=== PATIENT | female | born 1945 | race Caucasian/White ===

== ENCOUNTER → 2019-04-30 | Outpatient (CLI) | payer MEDICARE ==
--- NOTE | 2019-04-30 15:14 | PCVCIMAG ---
APPROVED REPORT Study performed: 04/30/2019 12:30:33 EXAM: Comprehensive 2D, Doppler, and color-flow Echocardiogram Patient Location: Echo lab Status: routine BSA: 2.21 HR: 67 bpmBP: 134/70 mmHg Rhythm: NSR Other Information Study Quality: Adequate Risk Factors: Cardiac Risk Factors: HTN, DM Indications CAD 2D Dimensions IVSd: 13.00 (7-11mm) PWd: 12.00 (7-11mm) Left Atrium: 42.84 (27-40mm) Aortic Root: 30.66 mm LV Single Plane 4CH: 48.12 % LV Single Plane 2CH: 43.97 % M-Mode Dimensions LVDd: 40.00 (40-56mm) LVDs: 30.00 (20-38mm) Volumes Left Atrial Volume (Systole) Single Plane 4CH: 59.36 mLSingle Plane 2CH: 55.95 mL LA ESV Index: 29.00 mL/m2 Aortic Valve AoV Peak Orestes.: 1.50 m/s AO Peak Gr.: 8.95 mmHg Mitral Valve E/A Ratio: 0.6 MV Decel. Time: 342.08 ms MV E Max Orestes.: 0.37 m/s MV A Orestes.: 0.66 m/s MV PHT: 99.20 ms MVA (PHT): 2.22 cm2 IVRT: 117.41 ms Pulmonary Valve PV Peak Orestes.: 0.99 m/sPV Peak Gr.: 3.94 mmHg Pulmonary Vein P Vein S: 0.49 m/sP Vein A: 0.90 m/s P Vein D: 0.65 m/s P Vein S/D Ratio: 0.75 Tricuspid Valve TR Peak Orestes.: 2.96 m/s TR Peak Gr.: 32.06 mmHg Left Ventricle The left ventricle is normal size. There is normal LV segmental wall motion. Mild concentric left ventricular hypertrophy. Left ventricular systolic function is normal. The left ventricular ejection fraction is within the normal range. LVEF is 55-60%. Grade I - abnormal relaxation pattern. Right Ventricle The right ventricle is normal size. The right ventricular systolic function is normal. Atria Left atrium is mildly dilated. The right atrium size is normal. Aortic Valve The aortic valve is normal in structure. No aortic regurgitation is present. There is no aortic valvular stenosis. Mitral Valve Mitral valve leaflets are calcified. Mild mitral regurgitation. No evidence of mitral valve stenosis. Tricuspid Valve The tricuspid valve is normal in structure. Mild tricuspid regurgitation with PAP of 39 mmHg. Pulmonic Valve The pulmonary valve is normal in structure. There is no pulmonic valvular regurgitation. Great Vessels The aortic root is normal in size. IVC is normal in size and collapses >50% with inspiration. Pericardium There is no pericardial effusion. There is no pleural effusion. <Conclusion> The left ventricle is normal size. Mild concentric left ventricular hypertrophy. Left ventricular systolic function is normal. Grade I - abnormal relaxation pattern. The right ventricle is normal size. Left atrium is mildly dilated. The aortic valve is normal in structure. Mitral valve leaflets are calcified. Mild mitral regurgitation. Mild tricuspid regurgitation with PAP of 39 mmHg.
== END | disposition home or self-care (01) ==
LOC: PCVCIMAG 13:38
PROVIDERS: ATTEND Internal Medicine Cardiovascular Disease
DX: I07.1 Rheumatic tricuspid insufficiency (principal); I11.9 Hypertensive heart disease without heart failure; Z88.8 Allergy status to other drugs, medicaments and biological substances
CPT/HCPCS: 93005; 93306; G0463